=== PATIENT | female | born 1995 | race African-American/Black ===

== ENCOUNTER → 2017-07-02 12:58 | Emergency (ER) | payer MEDICAID | END | disposition left against medical advice (07) | LOC: ER 12:58 | DX: R07.9 Chest pain, unspecified (principal); R51 Headache; M54.2 Cervicalgia; Z53.21 Procedure and treatment not carried out due to patient leaving prior to being seen by health care provider ==

== ENCOUNTER 2017-07-03 15:21 | Emergency (ER) | payer MEDICAID ==
[~2017-07-03] VITALS: Ht 157.5 cm; Wt 100.0 kg
[2017-07-03] MEDS ORDERED: KETOROLAC 60MG/2ML VIAL IM ONE (17:30)
[2017-07-03 17:45] VITALS: BP 122/70
== END 2017-07-03 17:50 | disposition home or self-care (01) ==
LOC: ER 15:21
DX: M54.2 Cervicalgia (principal); M79.1 Myalgia; M54.9 Dorsalgia, unspecified; V49.88XA Car occupant (driver) (passenger) injured in other specified transport accidents, initial encounter; Y93.89 Activity, other specified; Y92.89 Other specified places as the place of occurrence of the external cause; Y99.8 Other external cause status
CPT/HCPCS: 81025; 96372; 99283; J1885; Z7610

== ENCOUNTER 2018-10-16 11:08 | Emergency (ER) | payer MEDICAID ==
[~2018-10-16] VITALS: Ht 157.5 cm; Wt 109.0 kg
[2018-10-16] MEDS ORDERED: KETOROLAC 60MG/2ML VIAL IM ONE (14:45)
[2018-10-16 16:14] VITALS: BP 137/84
== END 2018-10-16 16:14 | disposition home or self-care (01) ==
LOC: ER 11:35
DX: S93.491A Sprain of other ligament of right ankle, initial encounter (principal); F12.10 Cannabis abuse, uncomplicated; W01.0XXA Fall on same level from slipping, tripping and stumbling without subsequent striking against object, initial encounter; Y93.89 Activity, other specified; Y92.89 Other specified places as the place of occurrence of the external cause; Y99.8 Other external cause status; Z98.890 Other specified postprocedural states
CPT/HCPCS: 73610; 81025; 96372; 99283; J1885

== ENCOUNTER 2019-02-11 06:11 | Emergency (ER) | payer BC, MEDICAID ==
[~2019-02-11] VITALS: Ht 157.5 cm; Wt 110.6 kg
[2019-02-11 08:01] VITALS: BP 123/71
== END 2019-02-11 08:02 | disposition home or self-care (01) ==
LOC: ER 06:11
DX: H10.9 Unspecified conjunctivitis (principal); F12.10 Cannabis abuse, uncomplicated
CPT/HCPCS: 99283

== ENCOUNTER 2019-08-02 15:33 | Emergency (ER) | payer MEDICAID ==
[~2019-08-02] VITALS: Ht 157.5 cm; Wt 112.0 kg
[2019-08-02] MEDS ORDERED: IBUPROFEN 600MG TABLET PO ONE (17:45)
[2019-08-02 17:52] VITALS: BP 109/92
== END 2019-08-02 18:31 | disposition home or self-care (01) ==
LOC: ER 15:33
DX: J02.9 Acute pharyngitis, unspecified (principal)
CPT/HCPCS: 87070; 87430; 99283

== ENCOUNTER 2020-01-09 19:24 | Emergency (ER) | payer MEDICAID ==
[~2020-01-09] VITALS: Ht 157.5 cm; Wt 95.2 kg
[2020-01-09] MEDS ORDERED: IBUPROFEN 600MG TABLET PO NR (20:10)
[2020-01-09] MEDS ORDERED: PENICILLIN G BENZATHINE 1,200,000 UNITS/2ML SYR IM NR (20:15)
[2020-01-09 20:30] VITALS: BP 137/72
== END 2020-01-09 20:41 | disposition home or self-care (01) ==
LOC: ER 19:24
DX: J02.9 Acute pharyngitis, unspecified (principal); F12.10 Cannabis abuse, uncomplicated
CPT/HCPCS: 96372; 99283; J0561